=== PATIENT | female | born 1955 ===

== ENCOUNTER → 2024-01-13 09:48 | Outpatient (BNVA) | payer MEDICARE, MEDICAID, SELFPAY | PROVIDERS: PCP Internal Medicine; Referring Provider Internal Medicine; Visit Provider Student in an Organized Health Care Education/Training Program | DX: Z12.11 Encounter for screening for malignant neoplasm of colon (principal); Z80.0 Family history of malignant neoplasm of digestive organs ==

== ENCOUNTER 2024-02-08 07:30 | Day surgery (SDC) | payer MEDICARE, MEDICAID, SELFPAY ==
[2024-02-08 07:37] VITALS: BP 136/92; PULSE 71; RESP 16; TEMP 36.1; O2SAT 95
[2024-02-08] MEDS: Normal Saline Flush 10 ML SYR IV (07:53)
--- NOTE | 2024-02-08 08:29 | W.COLOREPORT ---
Date of service: 02/08/24 Time of Service: 08:33 Colonoscopy Report Procedure Description: PROCEDURES PERFORMED: 1. Colonoscopy with hot snare polypectomy x2 PREOPERATIVE DIAGNOSIS: Screening colonoscopy, family history of colon cancer POSTOPERATIVE DIAGNOSIS: Colon polyps, diverticulosis SURGEON: Rose Spivey MD INDICATION for procedure: The patient is a 68-year-old woman who has never had a colonoscopy before. She has no symptoms. Her mother is in her 90s and just got diagnosed with colorectal cancer. FINDINGS: In the transverse colon a 3-5 mm sessile polyp was removed with hot snare technique. Further along in the sigmoid colon a 5-7 mm sessile polyp was removed with hot snare technique. There are diverticular changes throughout the entire left colon but no active inflammation or stricture or fibrosis appreciated. She does have a single tight turn in the sigmoid colon, but it is not a stricture. No significant hemorrhoid disease noticed. SURVEILLANCE interval/FOLLOW-UP: I recommend repeating a colonoscopy in 3 years because both polyps had an advanced appearance to them and in the setting of the family history. Recent guidelines recommend that ANY first-degree family member with colon cancer is somewhat increased risk and surveillance every 5 years should be offered at minimum. SPECIMENS: yes EBL: Minimal COMPLICATIONS: None QUALITY of prep: Excellent Procedure in detail: The patient gave written consent and was in agreement with the indications, the potential risks as well as the benefits of the procedure. They were taken to the endoscopy suite and laid in the left lateral decubitus position. A timeout was performed and anesthesia was administered which was tolerated well. I started the procedure. Digital rectal and visual examination was performed and grossly within normal limits. A well-lubricated flexible colonoscope was then introduced and passed without any notable difficulty all the way to the cecum identified by the ileocecal valve and the appendiceal orifice. The terminal ileum was intubated and looked normal. The scope was then slowly withdrawn with the above-noted findings. The patient tolerated the procedure well and was taken to the PACU in hemodynamically stable condition.
--- NOTE | 2024-02-08 08:36 | W.PM.DSUDISC ---
Date of service: 02/08/24 Time of Service: 08:36 Discharge Plan Disposition Patient Disposition: Home Condition: Good Discharge Details Attending Provider: Rivas Spivey Primary Care Provider: Marilu Chiu Home Meds and New Rx's Prescriptions: No Action carvedilol 6.25 mg tablet 6.25 mg PO BID Rx Instructions: must administer with a meal/food duloxetine 30 mg capsule,delayed release(DR/EC) 30 mg PO DAILY duloxetine 60 mg capsule,delayed release(DR/EC) 60 mg PO DAILY fluticasone propion-salmeterol [Advair Diskus] 500-50 mcg/dose blister with device 1 inh inhalation BID albuterol sulfate 2.5 mg /3 mL (0.083 %) solution for nebulization 2.5 mg inhalation QID PRN Centrum Silver Women 8 mg iron-400 mcg-300 mcg tablet 1 tab PO DAILY diazepam 10 mg tablet 10 mg PO BID PRN epinephrine 0.3 mg/0.3 mL auto-injector 0.3 mg IM Q5-15M PRN Rx Instructions: do not exceed 3 doses per episode fluconazole 150 mg tablet 150 mg PO DAILY Incruse Ellipta 62.5 mcg/actuation blister with device 1 inh inhalation DAILY (DME) Oxygen Tank See Rx Instructions .ROUTE .MEDSUPPLY Qty: 1 Rx Instructions: As directed albuterol sulfate [Ventolin HFA] 90 mcg/actuation HFA aerosol inhaler 2 puff inhalation Q4H PRN carisoprodol 350 mg tablet 350 mg PO BID PRN Discharge Instructions Additional Instructions: FINDINGS: Some advanced polyps were found today. They are nothing to worry about because we were able to remove them with a colonoscopy. These are the type of polyps that would eventually grow into cancer. Because of your family history, I recommend repeating another colonoscopy in 3 years. Separately, diverticulosis was seen today. This is an extremely common, benign condition that does not warrant any intervention. Activity:: Activity as Tolerated Diet:: As Tolerated
--- NOTE | 2024-02-08 08:37 | ANES.PREOP_ITS ---
General Info Date of Service Date Performed: 02/08/24 Height: 5 ft 1 in Weight: 63.2 kg Body Mass Index (BMI): 26.3 Surgical Procedure: Operation Date: 02/08/24 08:50 Proposed Procedure Side Surgeon lily Spivey MD Meds Allergies and Home Medications Allergies Allergy/AdvReac Type Severity Reaction Status Date / Time insect venom Allergy Severe Alaphylaxis Unverified 02/08/24 07:51 - Bees fentanyl Allergy Unknown Unknown Unverified 02/08/24 07:51 hydrocodone (From Vicodin) Allergy Unknown Nausea Unverified 02/08/24 07:51 Home Medication ?Medication ?Instructions ?Recorded albuterol sulfate 2.5 mg/3 mL 2.5 mg inhalation QID PRN 12/24/20 (0.083 %) solution for nebulization fluticasone 500 mcg-salmeterol 50 1 inh inhalation BID 12/24/20 mcg/dose blistr powdr for inhalation (Advair Diskus) bisvttpe-cvyj-oiys 8 mg-folic 400 1 tab PO DAILY 12/24/20 mcg-K 50 mcg-lutein 300 mcg tablet (Centrum Silver Women) Oxygen #1 ea 12/25/20 albuterol sulfate 90 mcg/actuation 2 puff inhalation Q4H PRN 12/25/20 aerosol inhaler (Ventolin HFA) diazepam 10 mg tablet 10 mg PO BID PRN 12/25/20 epinephrine 0.3 mg/0.3 mL 0.3 mg IM Q5-15M PRN 12/25/20 injection, auto-injector fluconazole 150 mg tablet 150 mg PO DAILY 12/25/20 umeclidinium 62.5 mcg/actuation 1 inh inhalation DAILY 12/25/20 blister powder for inhalation (Incruse Ellipta) carisoprodol 350 mg tablet 350 mg PO BID PRN 01/13/24 carvedilol 6.25 mg tablet 6.25 mg PO BID 01/13/24 duloxetine 30 mg capsule,delayed 30 mg PO DAILY 01/13/24 release duloxetine 60 mg capsule,delayed 60 mg PO DAILY 01/13/24 release Current Visit Medications: Current Medications Generic Name Dose Route Start Last Admin Trade Name Freq PRN Reason Stop Dose Admin IV Miscellaneous Supplies 1 each 02/08/24 06:00 Iv Access IV 03/08/24 23:59 DIRECTED GERARDO Sodium Chloride 0 ml 02/08/24 06:00 02/08/24 07:53 Normal Saline Flush 10 Ml Syr IV 03/08/24 23:59 10 ml PRN PRN Administration Sodium Chloride 0 ml 02/08/24 06:00 Normal Saline 10 Ml Vial IJ 03/08/24 23:59 DIRECTED PRN Sterile Water 0 ml 02/08/24 06:00 Water,Injection,Sterile 10 Ml Vial IJ 03/08/24 23:59 DIRECTED PRN [facility] [place] Medical History Medical History Fibromyalgia H/O: HTN (hypertension) Synovial cyst of popliteal space Pain in joint of right shoulder Not for resuscitation Biceps tendinitis Backache Knee pain Articular cartilage disorder Irritable bowel syndrome Drug induced constipation Dental caries COPD (chronic obstructive pulmonary disease) Allergic rhinitis Migraine Chronic pain syndrome Depressive disorder PTSD (post-traumatic stress disorder) Nicotine dependence Hemangioma Surgical History Surgical History History of elbow surgery History of carpal tunnel release of both wrists H/O: hysterectomy Tobacco Smoking/Tobacco Use Status: Former Tobacco Use Alcohol Alcohol Intake: current Alcohol intake frequency: holidays/special occasions only Substance Use Substance use type: marijuana Details: Tincture Vital Signs and Lab Results Vital Signs Most Recent Vital Signs in EMR: Most Recent Vital Signs Temp Pulse Resp BP Pulse Ox 36.1 C L 71 16 136/92 H 95 02/08/24 07:37 02/08/24 07:37 02/08/24 07:37 02/08/24 07:37 02/08/24 07:37 Lab Results Blood Type / Crossmatch: No Data to Display Complete Blood Count: No Data to Display Complete Metabolic Panel: No Data to Display Liver Function Panel: No Data to Display Coagulation Panel: No Data to Display Cardiac Panel: No Data to Display Arterial Blood Gas: No Data to Display Venous Blood Gas: No Data to Display Pancreas Panel: No Data to Display Thyroid Panel: 2 No Data to Display Infectious Disease: No Data to Display Blood Cultures: No Data to Display Toxicology Panel: No Data to Display Anesthesia Assessment and Plan Anesthesia History Personal History: No History of Anesthesia Complications Family History: No Family History of Anesthesia Complications Exercise Tolerance Exercise Tolerance: Metabolic Equivalents>4 Pertinent Negatives Pertinent Negatives: No Major Cardiovascular Symptoms or Complaints and No Major Pulmonary Symptoms or Complaints Cardiac & Pulmonary Exam Cardiac Exam: Normal S1/S2 Heart Sounds Pulmonary Exam: Clear Bilateral Breath Sounds Cardiac and Pulmonary Comment:: COPD, no recent home O2 use, inhaler this am, preventative, not symptomatic Implantable Cardiac Device Does patient have a Pacemaker or an ICD?: No Airway Exam Known Difficult Airway: No Mallampati Class: 1 Mouth Opening: Normal (> 3cm) Thyromental Distance: Greater than 3 cm Neck Range of Motion: Full ROM Neck Circumference: Normal Teeth Condition: Normal Dentition ASA Classification ASA Score: ASA 3 Emergency Case?: No NPO Status NPO Status: NPO Clears >2 hours, Solids >8 hours Anesthesia Plan Resuscitation Status: Full Code Anesthesia Technique: General Anesthesia Airway Planned: Natural Airway Monitors Used: Standard Monitors
[2024-02-08 08:39] VITALS: BMI 26.3
--- NOTE | 2024-02-08 09:00 | BOWEL_PTH ---
PATIENT: Farrah Lazcano LOC: [facility] U#:[id number] AGE/SX: 68/F ROOM: RE02/08/[address]: Rivas Spivey : 1955 BED: DIS: 02/08/2024 SPEC #: [id number] RECD: 02/08/24 12:59 STATUS: IVAN RE #: [id number] RUT: 02/08/24 09:[address]: Rivas Spivey DEPT: Surgical Specimen RECD BY: Shannan Delacruz ENTERED: 02/08/24 13:01 SP TYPE: Bowel OTHR DR: Marilu Chiu Tissues: 1 - BIOPSY BOWEL 2 - BIOPSY BOWEL Procedures: GROSS AND MICRO LEVEL 4 Comments: [id number]
[2024-02-08 09:13] VITALS: BP 113/70; PULSE 65; RESP 16; TEMP 36.1; O2SAT 93
--- NOTE | 2024-02-08 09:33 | W.ANESPOSTOP ---
Postoperative Evaluation Date, Time and Location Date Performed: 02/08/24 Time Performed: 09:15 Patient Location: Day Surgery Unit Vital Signs Most Recent Imported Vital Signs: Most Recent Vital Signs Temp Pulse Resp BP Pulse Ox 36.1 C L 65 16 113/70 93 02/08/24 09:13 02/08/24 09:13 02/08/24 09:13 02/08/24 09:13 02/08/24 09:13 Pain Score Most Recent Pain Score: Most Recent Pain Score Pain Level 0 02/08/24 09:13 Assessment Mental Status: Awake (Alert & Oriented to Patient Baseline) Airway and Respiratory Function: Patent airway with normal (patient baseline) respiratory exam Cardiovascular Function: Hemodynamically Stable Hydration Status: Adequately Hydrated Nausea & Vomiting: No Nausea or Vomiting Pain: Pt. Denies Any Pain Peripheral Nerve Block: Patient did not receive a nerve block
[2024-02-08 09:42] VITALS: BP 123/65; PULSE 56; RESP 16; TEMP 36.2; O2SAT 95
== END 2024-02-08 10:10 | disposition home or self-care (01) ==
PROVIDERS: PCP Internal Medicine; Visit Provider Student in an Organized Health Care Education/Training Program
PROC: 0DJD8ZZ Inspection of Lower Intestinal Tract, Via Natural or Artificial Opening Endoscopic (ICD-10-PCS; CPT 45378; principal; 2024-02-08 08:45)
DX: Z12.11 Encounter for screening for malignant neoplasm of colon (principal); D12.5 Benign neoplasm of sigmoid colon; K57.30 Diverticulosis of large intestine without perforation or abscess without bleeding; Z80.0 Family history of malignant neoplasm of digestive organs; D12.3 Benign neoplasm of transverse colon
CPT/HCPCS: 45385; 00123; 88305; J2704